=== PATIENT | male | born 1990 | race Two or more races ===

== ENCOUNTER 2017-01-14 19:50 | Emergency (ER) | payer OTHER ==
[~2017-01-14] VITALS: Ht 172.7 cm; Wt 89.8 kg
[2017-01-14 21:05] VITALS: BP 115/78
== END 2017-01-14 23:15 | disposition home or self-care (01) ==
LOC: ER 19:50
DX: S92.422A Displaced fracture of distal phalanx of left great toe, initial encounter for closed fracture (principal); S90.212A Contusion of left great toe with damage to nail, initial encounter; V27.4XXA Motorcycle driver injured in collision with fixed or stationary object in traffic accident, initial encounter; Y93.89 Activity, other specified; Y99.8 Other external cause status; Y92.410 Unspecified street and highway as the place of occurrence of the external cause
CPT/HCPCS: 29515; 73630